=== PATIENT | male | born 1965 | race Caucasian/White ===

== ENCOUNTER 2017-05-27 17:46 | Emergency (ER) | payer OTHER ==
[~2017-05-27] VITALS: Ht 170.2 cm; Wt 103.2 kg
[2017-05-27 19:18] LABS: BASOPHILS % (AUTO) 0.5 % (0.0-2.0); EOSINOPHILS % (AUTO) 0.8 % (1.0-6.0); HEMATOCRIT 42.5 % (41-53); HEMOGLOBIN 14.7 g/dL (13.5-17.5); LYMPHOCYTES # (AUTO) 2.7 K/uL (1.0-4.8); LYMPHOCYTES % (AUTO) 20.5 % (22.0-44.0); MEAN CORPUSCULAR HEMOGLOBIN 29.6 pg (26.0-34.0); MEAN CORPUSCULAR HGB CONC 34.5 G/dL (31.0-37.0); MEAN CORPUSCULAR VOLUME 86 fL (80-100); MONOCYTES # (AUTO) 1.4 K/uL (0.1-1.0); MONOCYTES % (AUTO) 10.6 % (2.0-9.0); NEUTROPHILS # (AUTO) 8.8 K/uL (1.8-7.7); NEUTROPHILS % (AUTO) 67.6 % (40.0-70.0); PLATELET COUNT (AUTO) 242 K/uL (150-450); RED BLOOD CELL COUNT(AUTO) 4.95 MIL/uL (4.50-5.90)
[2017-05-27] MEDS ORDERED: KETOROLAC TROMETHAMINE 30 MG/ML VIAL IM ONE (19:30)
[2017-05-27 19:46] LABS: ANION GAP 12 mmol/L (8-16); CALCIUM, TOTAL 8.8 mg/dL (8.8-10.5); CARBON DIOXIDE 26 mmol/L (22-29); CHLORIDE 104 mmol/L (98-107); CREATININE 0.78 mg/dL (0.60-1.30); GLOMERULAR FILTR. RATE CALC > 60 mL/min (>60); POTASSIUM 3.7 mmol/L (3.5-5.1); SODIUM SERUM 142 mmol/L (136-145); UREA NITROGEN, BLOOD 11 mg/dL (7-18)
[2017-05-27 19:52] LABS: ALANINE AMINOTRANSFERASE 24 U/L (12-78); ALBUMIN 3.5 g/dL (3.4-5.0); ASPARTATE AMINOTRANSFERASE 21 U/L (15-37); BILIRUBIN,TOTAL 0.3 mg/dL (0.1-1.0); TOTAL PROTEIN, SERUM 7.6 g/dL (6.4-8.2); URIC ACID 7.1 mg/dL (2.6-7.2)
[2017-05-27 20:36] VITALS: BP 144/93
== END 2017-05-27 21:07 | disposition home or self-care (01) ==
LOC: EMS 17:49
DX: M10.9 Gout, unspecified (principal)
CPT/HCPCS: 36415; 73630; 80053; 84550; 85025; 85379; 93971; 96372; 99285; J1885

== ENCOUNTER 2023-02-12 19:47 | Emergency (ER) | payer OTHER, SELFPAY ==
[~2023-02-12] VITALS: Ht 175.3 cm; Wt 97.7 kg
[2023-02-12 19:56] VITALS: BP 150/88; PULSE 76; RESP 18; TEMP 97.7
[2023-02-12] MEDS ORDERED: ONDANSETRON HCL 4 MG/2 ML VIAL IM ONE (21:15)
[2023-02-12] MEDS ORDERED: HYDROmorphone HCL 2 MG/ML SYRINGE IM ONE (21:15)
[2023-02-12] MEDS ORDERED: KETOROLAC TROMETHAMINE 60 MG/2 ML VIAL IM ONE (21:15)
[2023-02-12] MEDS ORDERED: BACLOFEN 10 MG TABLET PO ONE (21:15)
[2023-02-12] MEDS ORDERED: IBUP-1554 PO (21:50)
[2023-02-12] MEDS ORDERED: HYDR-4072 PO (21:50)
[2023-02-12] MEDS ORDERED: BACL10TA PO (21:50)
== END 2023-02-12 22:26 | disposition home or self-care (01) ==
LOC: EMS 19:47
DX: M54.41 Lumbago with sciatica, right side (principal)
CPT/HCPCS: 99284; 96372; J1170; J1885; J2405